=== PATIENT | male | born 1950 | race Caucasian/White ===

== ENCOUNTER 2016-04-14 06:53 | Inpatient (IN) | payer MEDICARE ==
[~2016-04-14] VITALS: Ht 170.2 cm; Wt 53.5 kg
[~2016-04-14 06:53] MED LIST: CALC-50 PO; LAMO25TA4 PO; LEVE500T19 PO; OLAN1CAP16 PO; PANT40TA4 PO; TAMS0.4C31 PO
[2016-04-14] MEDS ORDERED: PANTOPRAZOLE SODIUM 40 MG/VIAL IV STA (07:24)
[2016-04-14] MEDS ORDERED: SODIUM CHLORIDE 0.9% 1,000 ML IV ONE (07:24)
[2016-04-14 07:47] LABS: BASOPHILS % 0.1 % (0.0-2.0); HEMATOCRIT. 41.4 % (42.0-52.0); HEMOGLOBIN. 13.5 g/dL (14.0-18.0); LYMPHOCYTES % 8.2 % (20.0-50.0); MEAN CORPUSCULAR HEMOGLOBIN 27.1 pg (28.0-32.0); MEAN CORPUSCULAR HGB CONC 32.7 g/dL (31.0-37.0); MEAN CORPUSCULAR VOLUME 82.8 fL (80.0-94.0); MEAN PLATELET VOLUME 7.1 fl (7.4-10.4); MONOCYTES % 4.6 % (2.0-8.0); NEUTROPHILS % 87.1 % (40.0-76.0); PLATELET 309 x1000/uL (130-400); RED CELL DISTRIBUTION WIDTH 14.7 % (11.6-14.6); WHITE BLOOD COUNT 10.9 x1000/uL (4.5-11.0)
[2016-04-14 08:02] LABS: ALANINE AMINOTRANSFERASE 27 IU/L (13-61); ALBUMIN 3.8 g/dL (3.4-5.0); ANION GAP 14; CALCIUM 9.3 mg/dL (8.5-10.1); CARBON DIOXIDE 28 mEq/L (21-32); CHLORIDE 102 mEq/L (98-107); INDEX HEMOLYSI 1 (1-3); INDEX ICTERIC 1 (1-4); INDEX LIPEMIC 1 (1-3); LIPASE 53 IU/L (73-393); UREA NITROGEN BLOOD 33 mg/dL (7-21); eGFR > 60 mL/min (>60)
[2016-04-14 08:04] LABS: TROPONIN I < 0.02 ng/mL (0.00-0.04)
[2016-04-14 08:05] LABS: INR 1.2; PARTIAL THROMBOPLASTIN TIME 31.3 sec (24.0-34.0); PROTHROMBIN TIME 12.1 sec
[2016-04-14] MEDS ORDERED: MAGN296S PO (08:08)
[2016-04-14] MEDS ORDERED: RIVA20TA PO ×2 (08:08→20:01)
[2016-04-14] MEDS ORDERED: LACT10SO6 PO (08:08)
[2016-04-14 13:35] VITALS: BP 100/65
[2016-04-14] MEDS ORDERED: ACETAMINOPHEN 325MG TABLET PO PRN (14:00)
[2016-04-14] MEDS ORDERED: MAGNESIUM/ALUMINUM HYDROXIDE/SIMETHICONE 30ML UDC PO PRN (14:00)
[2016-04-14] MEDS ORDERED: DIPHENHYDRAMINE 50MG/ML VIAL IV PRN (14:00)
[2016-04-14] MEDS ORDERED: ONDANSETRON HCL 4MG/2ML VIAL IV PRN (14:00)
[2016-04-14] MEDS ORDERED: CLONIDINE 0.1MG TABLET PO PRN (14:00)
[2016-04-14 16:00] VITALS: BP 92/64
[2016-04-14] MEDS: SODIUM CHLORIDE 0.9% 1,000 ML IV SCH (18:38)
[2016-04-14] MEDS: PANTOPRAZOLE SODIUM 40 MG/VIAL IV SCH (18:39)
[2016-04-14 20:00] VITALS: BP 88/45
[2016-04-14] MEDS: TAMSULOSIN HCL 0.4MG SR CAPSULE PO SCH (21:45)
[2016-04-14] MEDS: LEVETIRACETAM 500MG/5ML CUP PO SCH (22:34)
[2016-04-15] VITALS (7 sets, daily range): BP systolic 94–110; BP diastolic 41–65
[2016-04-15] MEDS: SODIUM CHLORIDE 0.9% 1,000 ML IV SCH ×4 (01:55→21:13)
[2016-04-15] MEDS ORDERED: DIGOXIN 500MCG/2ML AMP IV NR ×2 (04:45→10:45)
[2016-04-15] MEDS: PANTOPRAZOLE SODIUM 40 MG/VIAL IV SCH ×2 (05:06→19:31)
[2016-04-15 06:46] LABS: BASOPHILS % 0.4 % (0.0-2.0); EOSINOPHILS % 1.5 % (0.0-5.0); HEMATOCRIT. 33.3 % (42.0-52.0); LYMPHOCYTES % 34.1 % (20.0-50.0); MEAN CORPUSCULAR HGB CONC 33.1 g/dL (31.0-37.0); MEAN CORPUSCULAR VOLUME 84.5 fL (80.0-94.0); MEAN PLATELET VOLUME 7.5 fl (7.4-10.4); MONOCYTES % 10.4 % (2.0-8.0); NEUTROPHILS % 53.6 % (40.0-76.0); PLATELET 226 x1000/uL (130-400); RED BLOOD CELL COUNT 3.94 mill/uL (4.7-6.1); RED CELL DISTRIBUTION WIDTH 14.6 % (11.6-14.6); WHITE BLOOD COUNT 6.6 x1000/uL (4.5-11.0)
[2016-04-15 08:26] LABS: ANION GAP 11; CALCIUM 7.9 mg/dL (8.5-10.1); CARBON DIOXIDE 25 mEq/L (21-32); CHLORIDE 111 mEq/L (98-107); INDEX HEMOLYSI 1 (1-3); INDEX ICTERIC 1 (1-4); INDEX LIPEMIC 1 (1-3); MAGNESIUM 2.2 mg/dL (1.8-2.4); UREA NITROGEN BLOOD 32 mg/dL (7-21); eGFR > 60 mL/min (>60)
[2016-04-15] MEDS: OLANZAPINE 10MG TABLET PO SCH (09:00)
[2016-04-15] MEDS: LAMOTRIGINE 150MG TABLET PO SCH ×2 (09:00→21:13)
[2016-04-15] MEDS: LEVETIRACETAM 500MG/5ML CUP PO SCH ×2 (10:33→21:12)
[2016-04-15] MEDS: TAMSULOSIN HCL 0.4MG SR CAPSULE PO SCH (21:00)
[2016-04-16] VITALS: BP 122/57
[2016-04-16 04:00] VITALS: BP 101/62
[2016-04-16] MEDS: SODIUM CHLORIDE 0.9% 1,000 ML IV SCH (04:59)
[2016-04-16] MEDS: PANTOPRAZOLE SODIUM 40 MG/VIAL IV SCH ×2 (04:59→18:19)
[2016-04-16] MEDS: LAMOTRIGINE 150MG TABLET PO SCH ×2 (09:44→20:48)
[2016-04-16] MEDS: LEVETIRACETAM 500MG/5ML CUP PO SCH ×2 (09:46→20:48)
[2016-04-16] MEDS: OLANZAPINE 10MG TABLET PO SCH (09:46)
[2016-04-16 12:00] VITALS: BP 99/63
[2016-04-16 16:00] VITALS: BP 86/44
[2016-04-16 20:00] VITALS: BP 90/56
[2016-04-16] MEDS: TAMSULOSIN HCL 0.4MG SR CAPSULE PO SCH (20:48)
[2016-04-17] VITALS: BP 95/45
[2016-04-17 04:00] VITALS: BP_SYST 108; BP_SYST 130; BP_DIAS 52; BP_DIAS 80
[2016-04-17] MEDS: PANTOPRAZOLE SODIUM 40 MG/VIAL IV SCH (05:27)
[2016-04-17 08:00] VITALS: BP 93/55
[2016-04-17 08:12] LABS: HEMATOCRIT. 31.4 % (42.0-52.0); HEMOGLOBIN. 10.4 g/dL (14.0-18.0); MEAN CORPUSCULAR HEMOGLOBIN 27.7 pg (28.0-32.0); MEAN CORPUSCULAR HGB CONC 33.1 g/dL (31.0-37.0); MEAN CORPUSCULAR VOLUME 83.7 fL (80.0-94.0); PLATELET 213 x1000/uL (130-400); RED BLOOD CELL COUNT 3.75 mill/uL (4.7-6.1); RED CELL DISTRIBUTION WIDTH 14.5 % (11.6-14.6); WHITE BLOOD COUNT 6.4 x1000/uL (4.5-11.0)
[2016-04-17 08:16] LABS: INR 1.1; PARTIAL THROMBOPLASTIN TIME 27.2 sec (24.0-34.0); PROTHROMBIN TIME 11.7 sec
[2016-04-17 08:19] LABS: ANION GAP 9; CALCIUM 7.5 mg/dL (8.5-10.1); CARBON DIOXIDE 27 mEq/L (21-32); CHLORIDE 111 mEq/L (98-107); INDEX HEMOLYSI 1 (1-3); INDEX ICTERIC 1 (1-4); INDEX LIPEMIC 1 (1-3); UREA NITROGEN BLOOD 6 mg/dL (7-21); eGFR > 60 mL/min (>60)
[2016-04-17] MEDS: DEXT 5%/0.45% NACL 1000ML 1,000 ML IV SCH (08:50)
[2016-04-17] MEDS: LEVETIRACETAM 500MG/5ML CUP PO SCH ×2 (08:54→20:44)
[2016-04-17] MEDS: LAMOTRIGINE 150MG TABLET PO SCH ×2 (08:54→20:44)
[2016-04-17] MEDS: OLANZAPINE 10MG TABLET PO SCH (08:54)
[2016-04-17] MEDS ORDERED: POTASSIUM CHLORIDE INJ 40 MEQ in DEXT 5% WATER 250 ML IV NR (11:00)
[2016-04-17 14:09] LABS: PLATELET ESTIMATE NORMAL
[2016-04-17 16:00] VITALS: BP 109/49
[2016-04-17 20:00] VITALS: BP 95/55
[2016-04-17] MEDS: TAMSULOSIN HCL 0.4MG SR CAPSULE PO SCH (20:44)
[2016-04-18] VITALS (7 sets, daily range): BP systolic 96–131; BP diastolic 61–80
[2016-04-18] MEDS: DEXT 5%/0.45% NACL 1000ML 1,000 ML IV SCH ×2 (05:58→10:30)
[2016-04-18 06:34] LABS: BASOPHILS % 0.5 % (0.0-2.0); EOSINOPHILS % 2.8 % (0.0-5.0); HEMATOCRIT. 30.7 % (42.0-52.0); HEMOGLOBIN. 10.2 g/dL (14.0-18.0); LYMPHOCYTES % 56.5 % (20.0-50.0); MEAN CORPUSCULAR HEMOGLOBIN 27.5 pg (28.0-32.0); MEAN CORPUSCULAR HGB CONC 33.3 g/dL (31.0-37.0); MEAN CORPUSCULAR VOLUME 82.6 fL (80.0-94.0); MEAN PLATELET VOLUME 7.3 fl (7.4-10.4); MONOCYTES % 8.2 % (2.0-8.0); PLATELET 254 x1000/uL (130-400); RED BLOOD CELL COUNT 3.72 mill/uL (4.7-6.1); RED CELL DISTRIBUTION WIDTH 14.4 % (11.6-14.6); WHITE BLOOD COUNT 4.5 x1000/uL (4.5-11.0)
[2016-04-18 07:23] LABS: ALANINE AMINOTRANSFERASE 15 IU/L (13-61); ALBUMIN 2.6 g/dL (3.4-5.0); ANION GAP 11; CALCIUM 7.7 mg/dL (8.5-10.1); CARBON DIOXIDE 26 mEq/L (21-32); CHLORIDE 109 mEq/L (98-107); CREATINE KINASE 31 IU/L (39-308); CREATINE KINASE MB FRACTION 0.7 ng/mL (0.5-3.6); HDL CHOLESTEROL 55 mg/dL (40-59); INDEX HEMOLYSI 1 (1-3); INDEX ICTERIC 1 (1-4); INDEX LIPEMIC 1 (1-3); LDL CHOLESTEROL 61 mg/dL (5-100); TRIGLYCERIDE 53 mg/dL (0-150); TROPONIN I < 0.02 ng/mL (0.00-0.04); UREA NITROGEN BLOOD 5 mg/dL (7-21); eGFR > 60 mL/min (>60)
[2016-04-18] MEDS ORDERED: PANTOPRAZOLE SODIUM 40 MG/VIAL IV SCH (09:00)
[2016-04-18] MEDS: LEVETIRACETAM 500MG/5ML CUP PO SCH ×2 (09:57→20:32)
[2016-04-18] MEDS: OLANZAPINE 10MG TABLET PO SCH (09:58)
[2016-04-18] MEDS: LAMOTRIGINE 150MG TABLET PO SCH ×2 (09:58→20:32)
[2016-04-18] MEDS ORDERED: POTASSIUM CHLORIDE INJ 40 MEQ in DEXT 5% WATER 250 ML IV NR (12:30)
[2016-04-18] MEDS: TAMSULOSIN HCL 0.4MG SR CAPSULE PO SCH (20:32)
== END 2016-04-18 21:54 | disposition home or self-care (01) | DRG 378 ==
LOC: ER 06:56 → 5WST 08:42
PROVIDERS: ADMIT Internal Medicine; ATTEND Internal Medicine
DX: K92.2 Gastrointestinal hemorrhage, unspecified (principal); I48.92 Unspecified atrial flutter; D64.9 Anemia, unspecified; F79 Unspecified intellectual disabilities; H54.8 Legal blindness, as defined in USA; G40.909 Epilepsy, unspecified, not intractable, without status epilepticus; K21.9 Gastro-esophageal reflux disease without esophagitis; K92.0 Hematemesis; E11.9 Type 2 diabetes mellitus without complications; F29 Unspecified psychosis not due to a substance or known physiological condition; I10 Essential (primary) hypertension; I44.30 Unspecified atrioventricular block; I48.91 Unspecified atrial fibrillation; N40.0 Benign prostatic hyperplasia without lower urinary tract symptoms; Z90.49 Acquired absence of other specified parts of digestive tract; Z88.0 Allergy status to penicillin; Z79.899 Other long term (current) drug therapy; D63.8 Anemia in other chronic diseases classified elsewhere
CPT/HCPCS: 36415; 71010; 80048; 80053; 80061; 82270; 82550; 82553; 83690; 83735; 84443; 84484; 85007; 85025; 85027; 85610; 85730; 86850; 86900; 93005; 96361; 96374; 99285; C9113; J1160; J1200; J3480; J3490; J7030; J7040; J7060